=== PATIENT | female | born 1985 | race Caucasian/White ===

== ENCOUNTER → 2017-06-27 18:38 | Emergency (ER) | payer SELFPAY ==
[~2017-06-27 18:38] MED LIST: PPD test dose* 5 TU/0.1 ML TEST (*USE PPD ORDER SET*) ONE
== END | disposition home or self-care (01) ==
LOC: OHCORT 18:38 → UCCORT 18:38
DX: Z11.1 Encounter for screening for respiratory tuberculosis (principal)

== ENCOUNTER 2017-07-21 18:47 | Emergency (ER) | payer BC ==
[2017-07-21 20:46] VITALS: BP 123/71
[2017-07-21] MEDS ORDERED: Azithromycin TAB* 250 MG PO ONE (21:09)
--- NOTE | 2017-08-03 20:54 | UC ---
Ear Complaint HPI - HPI Summary HPI Summary: 31 y/o female with h/o nasal congestion, ear pain b/l, fever, chills. no relief, ear pain worsening. + fatigue. + throat pain, able to swallow, breath without difficulty. no gi symptoms - History of Current Complaint Hx Obtained From: Patient Hx Last Menstrual Period: PRESENT ?: No Onset/Duration: Gradual Onset, Lasting Weeks Severity Initially: Mild Severity Currently: Moderate Pain Intensity: 4 Pain Scale Used: 0-10 Numeric <Laila Knox - Last Filed: 08/03/17 20:49> <Sharlene Pratt - Last Filed: 08/03/17 21:03> - History of Current Complaint Chief Complaint: UCEar Stated Complaint: EAR SINUS COUGH SORE THROAT Time Seen by Provider: 07/21/17 21:00 - Allergies/Home Medications Allergies/Adverse Reactions: Allergies Allergy/AdvReac Type Severity Reaction Status Date / Time Penicillins Allergy Intermediate Rash Verified 07/21/17 20:46 PMH/Surg Hx/FS Hx/Imm Hx Previously Healthy: Yes - Surgical History Surgical History: Yes Surgery Procedure, Year, and Place: BREAST REDUCTION 2007 - Social History Alcohol Use: Occasionally Substance Use Type: None Smoking Status (MU): Never Smoked Tobacco <Laila Knox - Last Filed: 08/03/17 20:49> Review of Systems Constitutional: Fever, Chills, Fatigue ENT: Sore Throat, Ear Ache, Nasal Discharge, Sinus Congestion, Sinus Pain/ Tenderness Is Patient Immunocompromised?: No All Other Systems Reviewed And Are Negative: Yes <Laila Knox - Last Filed: 08/03/17 20:49> Physical Exam Triage Information Reviewed: Yes Appearance: No Pain Distress, Well-Nourished, Ill-Appearing - mild Vital Signs: Initial Vital Signs Temp 101.7 F 07/21/17 20:38 Pulse 87 07/21/17 20:38 Resp 18 07/21/17 20:38 BP 123/71 07/21/17 20:38 Pulse Ox 98 07/21/17 20:38 ENT: Positive: Pharyngeal erythema - mild, TM bulging, TM dull, TM red, Tonsillar swelling - mild, Sinus tenderness, Uvula midline Neck: Positive: Supple, Nontender, Enlarged Nodes @ - minimal submand Respiratory: Positive: Chest non-tender, Lungs clear, Normal breath sounds, No respiratory distress, No accessory muscle use. Negative: Crackles, Rhonchi, Stridor, Wheezing Cardiovascular: Positive: RRR, No Murmur Abdomen Description: Negative: CVA Tenderness (R), CVA Tenderness (L) <Laila Knox - Last Filed: 08/03/17 20:49> Vital Signs: Initial Vital Signs Temp 101.7 F 07/21/17 20:38 Pulse 87 07/21/17 20:38 Resp 18 07/21/17 20:38 BP 123/71 07/21/17 20:38 Pulse Ox 98 07/21/17 20:38 <Sharlene Pratt - Last Filed: 08/03/17 21:03> Ear Complaint Course/Dx - Course Course Of Treatment: sinusisits, acute otitis media. abx given, follow up with PCP, return to ER with worsening symptoms/ > fever - Differential Dx/Diagnosis Provider Diagnoses: AOM, pharyngitis <Laila Knox - Last Filed: 08/03/17 20:49> Discharge <Laila Knox - Last Filed: 08/03/17 20:49> <Sharlene Pratt - Last Filed: 08/03/17 21:03> - Discharge Plan Condition: Fair Disposition: HOME Prescriptions: Azithromycin TAB* [Zithromax TAB (Z-POLO) 250 mg #6 tabs] 250 mg PO DAILY #4 tab Patient Education Materials: Pharyngitis (ED), Ear Infection (ED) Referrals: No Primary Care Phys,NOPCP [Primary Care Provider] - Additional Instructions: - Increase fluid intake - Antibiotics as prescribed - Motrin/ tylenol for pain - GO to ER with increased pain, swelling, feer >104 or posterior ear pain Attestation Statement User Type: Provider - I was available for consult. This patient was seen by the advanced practice provider. The patient was not presented to, seen by, or examined by me.-Lala <Sharlene Pratt - Last Filed: 08/03/17 21:03>
== END 2017-07-21 21:17 | disposition home or self-care (01) ==
LOC: UCCORT 18:47
DX: H66.93 Otitis media, unspecified, bilateral (principal); J02.9 Acute pharyngitis, unspecified; R50.9 Fever, unspecified; R53.83 Other fatigue; Z88.0 Allergy status to penicillin
CPT/HCPCS: 99212; A9270-GY; G0463